=== PATIENT | male | born 1970 | race Native Hawaiian/Other Pacific Islander ===

== ENCOUNTER 2018-06-06 21:07 | Observation (INO) | payer OTHER ==
[~2018-06-06] VITALS: Ht 175.3 cm; Wt 84.0 kg
[2018-06-06 21:23] VITALS: BP 175/146; TEMP 97.6
[2018-06-06 22:15] VITALS: BP 140/110
[2018-06-06 22:30] VITALS: BP 140/110; BP 146/92
[2018-06-06 22:37] LABS: PLATELET COUNT 241 K/uL (142-355)
[2018-06-06 22:40] LABS: POTASSIUM 3.6 mmol/L (3.6-5.2); SODIUM 139 mmol/L (136-145)
[2018-06-07 00:19] VITALS: BP 141/95
[2018-06-07 02:01] VITALS: BP 140/87
[2018-06-07 02:49] VITALS: BP 170/85; TEMP 97.7; Ht 175.3 cm; Wt 84.0 kg
[2018-06-07 04:01] VITALS: BP 170/85; TEMP 97.7
[2018-06-07] MEDS ORDERED: AMLODIPINE BESYLATE PO (05:01)
== END 2018-06-07 05:30 | disposition left against medical advice (07) ==
LOC: ED 21:07 → MED/SURG 06-07 01:37
PROVIDERS: ADMIT Emergency Medicine
DX: R07.89 Other chest pain (principal); S49.82XA Other specified injuries of left shoulder and upper arm, initial encounter; S29.8XXA Other specified injuries of thorax, initial encounter; V29.9XXA Motorcycle rider (driver) (passenger) injured in unspecified traffic accident, initial encounter; Y93.89 Activity, other specified; Y92.89 Other specified places as the place of occurrence of the external cause
CPT/HCPCS: 36415; 80053; 80307; 80320; 81000; 82550; 82553; 84484; 85027; 93005; 96365; 96366; 99220; 99284; G0378; J1885; Q9963

== ENCOUNTER 2022-12-06 03:08 | Emergency (ER) | payer OTHER ==
[~2022-12-06] VITALS: Ht 175.3 cm; Wt 77.1 kg
[~2022-12-06 03:08] MED LIST: AMLODIPINE BESYLATE PO
[2022-12-06 03:37] VITALS: TEMP 98
[2022-12-06 05:02] VITALS: BP 165/112
== END 2022-12-06 05:04 ==
LOC: ED 03:08
DX: M75.102 Unspecified rotator cuff tear or rupture of left shoulder, not specified as traumatic (principal); M19.90 Unspecified osteoarthritis, unspecified site; W19.XXXA Unspecified fall, initial encounter
CPT/HCPCS: 96374; 96375; 99284; J1100; J1885; J2405